=== PATIENT | female | born 1940 | race Two or more races ===

== ENCOUNTER 2020-04-30 04:40 | Inpatient (IN) | payer OTHER ==
[~2020-04-30] VITALS: Ht 162.6 cm; Wt 89.8 kg
[~2020-04-30 04:40] MED LIST: CYMBALTA60 MG PO; GABAPENTIN800 M1 PO; HYDROCHLOROTHIA25 MG PO; LEVO-T25 MCG PO; NABUMETONE750 MG PO; PROAIR HFA8.5 GM IH; SINGULAIR10 MG PO; SYMBICORT 16010.2 GM IH; TRAM1TAB98 PO
[2020-04-30] MEDS ORDERED: MEDROLPACK PO (14:22)
[2020-04-30] MEDS ORDERED: DIAZEPAM5 MG PO (14:22)
[2020-04-30] MEDS ORDERED: NEURONTIN800 MG PO (14:22)
[2020-04-30] MEDS ORDERED: AMOX-CLAV 875-1 EACH PO (14:22)
[2020-04-30] MEDS ORDERED: PERCOCET 5-3251 EACH PO (14:22)
[2020-04-30] MEDS ORDERED: COLACE100 MG PO (14:24)
== END 2020-05-01 15:21 | disposition home health service (06) | DRG 458 ==
LOC: CIR.AMB 04:40 → SURH 15:38
PROVIDERS: ADMIT Orthopaedic Surgery Orthopaedic Surgery of the Spine; ATTEND Orthopaedic Surgery Orthopaedic Surgery of the Spine
PROC: 0SB20ZZ Excision of Lumbar Vertebral Disc, Open Approach (ICD-10-PCS; 2020-04-30)
PROC: 0SU Lower Joints, Supplement (ICD-10-PCS; 2020-04-30)
PROC: 0QB30ZZ Excision of Left Pelvic Bone, Open Approach (ICD-10-PCS; 2020-04-30)
PROC: 07DR0ZZ Extraction of Iliac Bone Marrow, Open Approach (ICD-10-PCS; 2020-04-30)
PROC: 0SG0070 Fusion of Lumbar Vertebral Joint with Autologous Tissue Substitute, Anterior Approach, Anterior Column, Open Approach (ICD-10-PCS; principal; 2020-04-30 07:00)
DX: M41.56 Other secondary scoliosis, lumbar region (principal); M48.062 Spinal stenosis, lumbar region with neurogenic claudication; E03.9 Hypothyroidism, unspecified

== ENCOUNTER 2021-02-28 10:00 | Inpatient (IN) | payer OTHER ==
[~2021-02-28] VITALS: Ht 162.6 cm; Wt 86.2 kg
[~2021-02-28 10:00] MED LIST changes: +AMOX-CLAV 875-1 EACH PO; +COLACE100 MG PO; +DIAZEPAM5 MG PO; +MEDROLPACK PO; +NEURONTIN800 MG PO; +PERCOCET 5-3251 EACH PO
[2021-03-04] MEDS ORDERED: PANTOPRAZOLE SO40 MG (08:35)
[2021-03-04] MEDS ORDERED: LEVOTHYROXINE75 MCG (08:35)
[2021-03-04] MEDS ORDERED: PRIMIDONE50 MG (08:35)
[2021-03-04] MEDS ORDERED: COLACE100 MG PO (09:21)
[2021-03-04] MEDS ORDERED: AMOX-CLAV 875-1 EACH PO (09:23)
[2021-03-04] MEDS ORDERED: MEDROLPACK PO (09:23)
[2021-03-04] MEDS ORDERED: PERCOCET 5-3251 EACH PO (09:23)
[2021-03-04] MEDS ORDERED: NEURONTIN800 MG PO (09:23)
== END 2021-03-05 17:30 | DRG 509 ==
LOC: SURH 03-04 05:44 → O/R 03-04 05:44 → SURH 03-04 10:00
PROVIDERS: ADMIT Orthopaedic Surgery Orthopaedic Surgery of the Spine; ATTEND Orthopaedic Surgery Orthopaedic Surgery of the Spine
PROC: 01NB0ZZ Release Lumbar Nerve, Open Approach (ICD-10-PCS; 2021-03-04)
PROC: 0QB00ZZ Excision of Lumbar Vertebra, Open Approach (ICD-10-PCS; 2021-03-04)
PROC: 0SP004Z Removal of Internal Fixation Device from Lumbar Vertebral Joint, Open Approach (ICD-10-PCS; 2021-03-04)
PROC: 4A12X4Z Monitoring of Cardiac Electrical Activity, External Approach (ICD-10-PCS; 2021-03-04)
PROC: 0SJ Lower Joints, Inspection (ICD-10-PCS; principal; 2021-03-04 11:00)
DX: M48.062 Spinal stenosis, lumbar region with neurogenic claudication (principal); M51.86 Other intervertebral disc disorders, lumbar region; M41.56 Other secondary scoliosis, lumbar region; I10 Essential (primary) hypertension; E03.8 Other specified hypothyroidism; Z51.89 Encounter for other specified aftercare; Z98.1 Arthrodesis status